=== PATIENT | male | born 1990 | race Caucasian/White ===

== ENCOUNTER 2019-07-19 03:21 | Emergency (ER) | payer MEDICAID, OTHER ==
[~2019-07-19] VITALS: Ht 172.7 cm; Wt 6.8 kg
[~2019-07-19 03:21] MED LIST: CYCL-1 PO; HYDR-4383 PO
[2019-07-19] MEDS ORDERED: normal saline 1000ML IV soln IVB ONE (03:30)
--- NOTE | 2019-07-19 03:43 | NUR ---
UPDATED OF NEW INFORMATION FROM PTS FRIEND.
--- NOTE | 2019-07-19 03:47 | NUR ---
PT REPORTS MOTHER IS EMERGENCY CONTACT, [place], , HE REQUEST I CALL AND UPDATE HER.
[2019-07-19 04:17] LABS: BASOPHILS % (AUTO) 0.2 % (0-1); EOSINOPHILS # (AUTO) 0.1 X10'3 (0-0.9); EOSINOPHILS % (AUTO) 0.7 % (0-6); HEMATOCRIT 41.1 % (42.0-52.0); LYMPHOCYTES # (AUTO) 1.9 X10'3 (1.1-4.8); LYMPHOCYTES % (AUTO) 13.2 % (21-51); MEAN CORPUSCULAR HEMOGLOBIN 29.7 PG (27.0-31.0); MEAN CORPUSCULAR HGB CONC 33.9 g/dL (33.0-36.5); MEAN CORPUSCULAR VOLUME 87.5 FL (78-98); MEAN PLATELET VOLUME 8.8 FL (7.4-10.4); MONOCYTES % (AUTO) 7.2 % (2-12); NEUTROPHILS # (AUTO) 11.2 X10'3 (1.8-7.7); NEUTROPHILS % (AUTO) 78.7 % (42-75); PLATELET COUNT 258 X10'3 (140-440); RED CELL DISTRIBUTION WIDTH 13.3 % (11.5-14.5); WHITE BLOOD COUNT 14.2 X10'3 (4.5-11.0)
[2019-07-19 04:34] LABS: ALANINE AMINOTRANSFERASE 25 U/L (12-78); ALBUMIN 4.1 G/DL (3.4-5.0); ALBUMIN/GLOBULIN RATIO 1.3 (1.1-1.5); ALKALINE PHOSPHATASE 69 IU/L (46-116); ANION GAP 8 (8-16); ASPARTATE AMINO TRANSFERASE 15 U/L (10-37); BILIRUBIN,TOTAL 0.4 MG/DL (0.1-1.0); BLOOD UREA NITROGEN 18 MG/DL (7-18); BUN/CREATININE RATIO 16.1 (5.4-32.0); CALCIUM 8.8 MG/DL (8.5-10.1); CHLORIDE 103 MMOL/L (99-107); CREATININE 1.12 MG/DL (0.60-1.10); GLUCOSE 119 MG/DL (70-104); POTASSIUM 3.7 MMOL/L (3.5-5.1); SODIUM 141 MMOL/L (135-145); TOTAL CARBON DIOXIDE 29.8 MMOL/L (24-32); TOTAL PROTEIN 7.3 G/DL (6.4-8.2); eGFR 79 ML/MIN
[2019-07-19 04:43] LABS: MAGNESIUM 1.9 MG/DL (1.5-2.4)
[2019-07-19 04:48] LABS: ETHANOL < 0.010 GM/DL (0.0-0.010)
--- NOTE | 2019-07-19 05:11 | NUR ---
PT UPDATED ON NEED FOR URINE TO EVALUATE FOR CARE. PT VERBALIZES UNDERSTANDING AND IS AGREEABLE TO VOIDING IN URINAL. URINAL AT BEDSIDE. PENDING UA SPECIMEN.
[2019-07-19 06:21] LABS: D-DIMER < 0.19 MG/L FEU (0-0.50)
[2019-07-19 06:22] LABS: URINE AMPHETAMINE SCREEN POSITIVE (Neg); URINE BARBITUATE SCREEN NEGATIVE (Neg); URINE BENZODIAZEPINES SCREEN NEGATIVE (Neg); URINE CANNABINOID SCREEN POSITIVE (Neg); URINE COCAINE SCREEN NEGATIVE (Neg); URINE METHADONE SCREEN NEGATIVE (Neg); URINE OPIATE SCREEN POSITIVE (Neg); URINE PHENCYCLIDINE SCREEN NEGATIVE (Neg)
[2019-07-19 06:25] LABS: CREATINE KINASE 86 U/L (39-308)
--- NOTE | 2019-07-19 06:27 | NUR ---
patient received on bed asleep,tachycardic 112bpm,hr has been running high per previous shift.We will continue to monitor.
--- NOTE | 2019-07-19 07:43 | NUR ---
dr. keenan at bedside.
[2019-07-19 08:02] VITALS: BP 116/79
== END 2019-07-19 08:04 | disposition home or self-care (01) ==
LOC: ER 03:21
DX: R07.89 Other chest pain (principal); F19.10 Other psychoactive substance abuse, uncomplicated; Z56.0 Unemployment, unspecified; Z88.6 Allergy status to analgesic agent
CPT/HCPCS: 36415; 71045; 80053; 80305; 80320; 82550; 82553; 83735; 83880; 84443; 84484; 85025; 85379; 93005; 99284; J7030